=== PATIENT | male | born 1955 | race Caucasian/White ===

== ENCOUNTER 2017-03-30 11:27 | Observation (INO) | payer OTHER ==
--- NOTE | ~2017-03-30 | HP ---
History And Physical [place] [id number] [facility] [place]. [address] NAME: AYUSH FONSECA : 53 STATUS : DIS Yareli PAT#: [id number] AGE: 62 ADM/REG DATE : 03/30/17 MR#: [id number] REPORT SERV DATE: 03/30/17 DICTATED BY: KALLI FERNANDEZ DATE: 03/30/17 REPORT STATUS : Draft TRANSCRIBED BY: MODL DATE: 03/30/17 DATE OF ADMISSION: 03/30/2017 HISTORY OF PRESENT ILLNESS: This is a very pleasant 62-year-old male, who presented to [facility] because of abdominal discomfort mostly in the epigastric and mid abdominal area going for approximately four days. This is a patient of Dr. Fermin. The patient was also concerned about color of his urine, which was dark, and he went to [facility] where he was told that he may have a urinary infection because of the dark urine, and he was placed on antibiotic, ciprofloxacin. The patient noticed that he had fever of 102 and that whole day he was taking Tylenol. Fever was also a little bit lower 100.5 yesterday. The patient today did not have abnormal temperature. His temperature was 98.2. No significant nausea. Abdominal pain improved. No chest pain. No shortness of breath. No headache. No constipation or diarrhea. Also a 14-point review of systems done and negative except what is stated in the history of present illness. PAST MEDICAL HISTORY: Known for history of enlarged prostate. He had two or three biopsies and it was benign enlarged prostate, history of hypertension, hypercholesterolemia. No history of heart attacks. No history of strokes. PAST SURGICAL HISTORY: Includes umbilical hernia surgery and tonsillectomy as a child. ALLERGIES: HE IS ALLERGIC TO CEFEPIME, HAD TONGUE SWELLING FROM CEFEPIME, BUT CAN TAKE QUINOLONES LIKE LEVAQUIN AND CIPROFLOXACIN. SOCIAL HISTORY: He uses alcohol once or twice a week, approximately three or four glasses of wine, maybe even more. He does not have any history of alcohol withdrawal and does not have any history of shakiness. Denies any use of smoking. No recreational drug use. He lives with his who has Alzheimer's dementia. 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 FAMILY HISTORY: The patient is adopted, but his biological mother from a brain aneurysm. His biological father from old age. He does not really know what medical problems he had. HOME MEDICATIONS: Include aspirin 81 mg daily, ciprofloxacin 500 mg p.o. b.i.d., finasteride 5 mg p.o. daily, Lopid 600 mg b.i.d., HCTZ 25 mg daily, losartan 100 mg daily, lovastatin 20 mg daily, metoprolol 25 p.o. b.i.d., omeprazole 20 mg daily, oxybutynin 5 mg p.o. b.i.d., and Flomax 0.4 mg daily. PHYSICAL EXAMINATION: GENERAL: Well-nourished, well-developed male, not in acute distress. Resting quietly. VITAL SIGNS: Blood pressure 163/89, temperature 98.2, heart rate 98, respiratory rate 20, and oxygen saturation 94% on room air. HEENT: Head atraumatic, normocephalic. Conjunctivae clear. Pupils are equal and reactive to light and accommodation. Extraocular muscles are intact. NECK: Supple. Trachea is midline. No supraclavicular or cervical lymphadenopathy. LUNGS: Clear to auscultation bilaterally. Normal respiratory effort. History And Physical [address] [address] NAME: AYUSH FONSECA : 53 STATUS : DIS Yareli PAT#: [id number] AGE: 62 ADM/REG DATE : 03/30/17 MR#: [id number] REPORT SERV DATE: 03/30/17 DICTATED BY: KALLI FERNANDEZ DATE: 03/30/17 REPORT STATUS : Draft TRANSCRIBED BY: RADHA DATE: 03/30/17 CARDIOVASCULAR SYSTEM: Regular rate and rhythm. Point of maximal impulse not displaced. ABDOMEN: Soft. There is no significant tenderness to palpation in the epigastric area. There is no tenderness in all abdominal quadrants. No guarding. No rebound. Completely benign abdominal examination. EXTREMITIES: No clubbing, cyanosis, or edema. SKIN: Normal color and turgor. NEUROLOGIC: He is awake, alert, and oriented in time, place, and person. There is no tremor. LABORATORY RESULTS: Sodium 136, potassium 3.2, chloride 102, carbon dioxide 27, BUN 16, creatinine 0.7, blood sugar 148, magnesium 2.1. Total bilirubin 5.9, direct bilirubin 4.7, indirect 1.2, ALT 671, AST 177, lipase 508. Troponin less than 0.02. White count 5.8, hemoglobin 15.8, hematocrit 45.7, platelet count 178. PTT 31.9, PT 14.3, INR 1.1. Urinalysis showed moderate amount of bilirubin, large amount of blood, no evidence of urinary infection, only 3 white blood cells, and negative leukocyte esterase. Chest x-ray: Small amount of bibasilar atelectasis in minimal amount. CT of the abdomen without contrast done in the emergency room. No evidence of acute abnormality within the abdomen or pelvis. Borderline prominence of the common bile duct. Minimal bibasilar atelectasis. Slightly enlarged prostate. Diverticulosis with no evidence of diverticulitis. MRI is currently ordered on the abdomen but pending. ASSESSMENT AND PLAN: This is a very pleasant 62-year-old male who presented with abdominal pain in the epigastric area, dark urine, and fever episodes going on for two days, currently afebrile. This is a 62-year-old male with a past medical history of hypertension, presented with abdominal pain and fever at home which currently resolved, and was found to have: 1. Abnormally elevated bilirubin, mostly direct bilirubin, with elevated liver enzymes and mildly elevated lipase, which indicates possible biliary ductal obstruction, most likely biliary stone taking into consideration the prominence of the common biliary duct on the CT scan. We need to order an MRI to see if there is a bile duct stone as well as differential diagnosis can include alcoholic hepatitis or autoimmune hepatitis or also possible infectious hepatitis. Studies are ordered per remotely piloted vehicle controller. We will give patient IV fluid hydration, keep him on clear liquids with n.p.o. after midnight. MRCP of the abdomen is already ordered by emergency room physician, Dr. Peña. It is already keyed in the computer. Ultrasound of the liver also the gallbladder is ordered. The patient will be started on intravenous antibiotics, Levaquin and Flagyl since he had fever episodes. 2. Hypokalemia will be replaced. 3. Hypertension. We will continue his beta-yasmin. We will hold his losartan. If necessary, we will give him IV blood pressure medications. 4. We will hold his cholesterol medications because of elevated liver enzymes. We will History And Physical [address] [place]. [address] NAME: AYUSH FONSECA : 53 STATUS : DIS Yareli PAT#: [id number] AGE: 62 ADM/REG DATE : 03/30/17 MR#: [id number] REPORT SERV DATE: 03/30/17 DICTATED BY: KALLI FERNANDEZ DATE: 03/30/17 REPORT STATUS : Draft TRANSCRIBED BY: MODL DATE: 03/30/17 hold his aspirin because of possible procedure ERCP. My partner will see this patient starting tomorrow morning and remotely piloted vehicle controller, Sina, nurse practitioner of Dr. Otto, already saw this patient. The patient does not have any evidence of urinary tract infection. The patient was explained that his urine is dark because of elevated bilirubin which is filtered from blood to the urine. 5. For history of alcohol use, the patient said that he never had alcohol withdrawals. We will put him on thiamine, already put by Sina. We will check serum B12 and folic acid levels. MG/MODL Kalli Fernandez M.D. / [id number] CC: Daniel Fermin M.D.
--- NOTE | ~2017-03-30 | CN ---
Consultation Report [facility] [address] [place]. [address] NAME: AYUSH ADRIAN : 53 STATUS : DIS Yareli PAT#: [id number] AGE: 62 ADM/REG DATE : 03/30/17 MR#: [id number] REPORT SERV DATE: 03/30/17 DICTATED BY: MICHAEL SHARMA DATE: 03/30/17 REPORT STATUS : Draft TRANSCRIBED BY: MODL DATE: 03/30/17 GI CONSULTATION. DATE OF CONSULTATION: 03/30/2017 REASON FOR CONSULTATION: Evaluation and management of elevated LFTs, acute hepatic failure. HISTORY OF PRESENT ILLNESS: Mr. Adrian is a very pleasant, 62-year-old male patient, who presented to the [facility] Room today after being seen at an outpatient walk-in clinic on Thursday for abdominal pain. He was found to have elevated LFTs. The laboratory data from that visit on the 03/28/2017, he had an elevated ALT of 1129 as well as an elevated AST of 605 with a total bilirubin of 5.6 and a normal lipase at 115. He had presented to the walk-in clinic secondary to epigastric abdominal discomfort, some mild reflux, and in general not feeling well. He felt like he might have a urinary tract infection secondary to what he describes as very dark tea-colored urine. He was placed on a regimen of Cipro. After laboratory data revealed abnormalities in his liver enzymes, he was instructed by their office to come in for further evaluation. He was seen in the emergency room. He had a total bilirubin of 5.9, lipase of 508, ALT of 671, and AST of 177. CT scan done with contrast showed there were no suspicious focal abnormalities within the liver or spleen. No intrahepatic biliary ductal dilatation. No calcified stones identified in the gallbladder. No pericholecystic inflammation. The common duct was near the upper limits of normal in size and mildly prominent, measuring 7 mm. Pancreas was normal on this exam also. Secondary to his degree of elevation in liver enzymes, he was being admitted for further evaluation. The patient states he had a fever up to 102 degrees on Thursday, which he took Tylenol for. He states that before that it was 100.7 degrees. He has since that time not had fever. PAST MEDICAL HISTORY: Positive for elevated cholesterol, enlarged prostate, hypertension, GERD, diverticulosis. PAST SURGICAL HISTORY: He denies any surgical history to me. SOCIAL HISTORY: He is positive for alcohol. He states his last drink was roughly a week ago and states that he had drank half a bottle of wine, but does not do this often. He denies any tobacco or illicits. He lives at home with his who suffers from end-stage Alzheimer's and he takes care of her. FAMILY HISTORY: Noncontributory from a GI standpoint. ALLERGIES: LISTED TO CEFEPIME. HOME MEDICATIONS: Aspirin, Cipro, Proscar, Lopid, hydrochlorothiazide, Cozaar, Mevacor, Lopressor, Prilosec, Ditropan, and Flomax. Consultation Report [address] [address] NAME: AYUSH ADRIAN : 53 STATUS : DIS Yareli PAT#: [id number] AGE: 62 ADM/REG DATE : 03/30/17 MR#: [id number] REPORT SERV DATE: 03/30/17 DICTATED BY: MICHAEL SHARMA DATE: 03/30/17 REPORT STATUS : Draft TRANSCRIBED BY: RADHA DATE: 03/30/17 REVIEW OF SYSTEMS: A 10-point review of systems was obtained with pertinent positives being addressed in the history of present illness. PERTINENT LABORATORY DATA: Sodium 136, potassium 3.2, BUN is 16, creatinine 0.7. White count 5.8, hemoglobin 15.8, hematocrit 45.7, platelet count 178. INR of 1.1. Direct bilirubin 4.7, indirect 1.2, total bilirubin 5.9. Alkaline phosphatase 258. ALT 71, AST 177. Lipase 508. PHYSICAL EXAMINATION: VITAL SIGNS: Temperature 98.2, pulse of 98, respirations 20, blood pressure 163/89. GENERAL: Reveals an alert, male, resting in bed with no focal deficits. He is awake, alert, and oriented x3. He is cooperative. He is in no acute distress. He has notable jaundice as well as scleral icterus. He has no asterixis. NECK: No JVD. No palpable nodes. Supple. LUNGS: Clear anteriorly with normal respiratory effort exhibited. CARDIOVASCULAR: Regular rate and rhythm. ABDOMEN: Soft and obese. He has no tenderness to palpation on exam. No rebound or guarding. No organomegaly was appreciated. EXTREMITIES: No edema. He has normal distal pulses. SKIN: Warm, dry, and intact. Jaundiced. ASSESSMENT: 1. Elevated liver function tests/acute hepatitis. 2. Abdominal pain. 3. Gastroesophageal reflux disease. 4. History of intermittent alcohol. PLAN: 1. Trend his LFTs. 2. Check a hepatitis panel A, B, and C. 3. Follow up on MRI results. 4. IV fluids. 5. Protonix. 6. Check chronic liver labs. 7. +/- ERCP based on MRI. BRUCE/RADHA EUGENIO Ruiz / [id number] Consultation Report [address] [place]. [address] NAME: AYUSH ADRIAN : 53 STATUS : DIS Yareli PAT#: [id number] AGE: 62 ADM/REG DATE : 03/30/17 MR#: [id number] REPORT SERV DATE: 03/30/17 DICTATED BY: MICHAEL SHARMA DATE: 03/30/17 REPORT STATUS : Draft TRANSCRIBED BY: RADHA DATE: 03/30/17 CC: Megan Sterling M.D.
--- NOTE | ~2017-03-30 | DS ---
Discharge Summary [facility] [address] [facility] [place]. [address] NAME: AYUSH FONSECA : 53 STATUS : DIS Yareli PAT#: [id number] AGE: 62 ADM/REG DATE : 03/30/17 MR#: [id number] REPORT SERV DATE: 04/01/17 DICTATED BY: REMIGIO LEMON DATE: 03/31/17 REPORT STATUS : Draft TRANSCRIBED BY: MODL DATE: 03/31/17 ADMISSION DATE: 03/30/2017 DISCHARGE DATE: 03/31/2017 REASON FOR ADMISSION: This was a 62-year-old male, who had come into the emergency room after being seen at outpatient walk-in clinic on Thursday for abdominal pain, and was found to have elevated LFTs. He felt like he had UTI as he was having dark tea-colored urine and was placed on antibiotics Cipro. After his lab work came back, they instructed him to come into the hospital for further evaluation. DISCHARGE DIAGNOSES: 1. Acute hepatitis, unclear etiology with transaminitis. 2. Abdominal pain. 3. Gastroesophageal reflux disease. 4. Alcohol use. HOSPITAL COURSE: Acute hepatitis with transaminitis. The patient on admission had a consult placed to GI. His total bilirubin was 5.9 on admit, trended down to 2.9 today. His alkaline phosphatase was 258 on admit, 258 today. His ALT was 671, 543 today; AST 177, 123 today; and lipase was 508 on admit, 380 today. The patient's abdominal pain which was present on admission has since resolved. On admission, he had abdominal imaging with an MRI of the abdomen which would show no pancreatic mass. No evidence of any intraductal obstruction seen. Several 2 to 3 mm benign cyst on kidneys bilaterally, but no acute liver, gallbladder, or pancreas findings. He also had a gallbladder ultrasound which showed normal appearance gallbladder and his abdominal pain resolved. A hepatitis panel was drawn, hepatitis B surface antigens nonreactive, hepatitis A IgM nonreactive, his hepatitis core IgM is still pending, and his hepatitis C antibody also still pending. We will have him follow up with GI, Dr. Schroeder, next week for followup labs. The patient tolerating food, urine improving, bilirubin improving, so he is discharging home. DISCHARGE CONDITION: Stable. DISCHARGE MEDICATIONS: 1. Metoprolol 25 mg p.o. b.i.d. 2. We will be holding his lovastatin until cleared by GI after his followup. 3. HCTZ 25 mg p.o. daily. 4. Ditropan 5 mg p.o. b.i.d. 5. Flomax 0.4 mg p.o. daily. 6. Lopid 600 mg p.o. b.i.d. 7. Prilosec 20 mg p.o. daily. 8. Proscar 5 mg p.o. daily. 9. Aspirin 81 mg p.o. daily. 10.Losartan 100 mg p.o. daily. Also of note, his INR was 1.1. DISCHARGE PLAN: The patient is discharged home. Follow up with GI next week, and primary Discharge Summary [address] [place]. [address] NAME: AYUSH FONSECA : 53 STATUS : DIS Yareli PAT#: [id number] AGE: 62 ADM/REG DATE : 03/30/17 MR#: [id number] REPORT SERV DATE: 04/01/17 DICTATED BY: REMIGIO LEMON DATE: 03/31/17 REPORT STATUS : Draft TRANSCRIBED BY: RADHA DATE: 03/31/17 care Daniel Fermin in 1 to 2 weeks. DICTATED BY: Remigio Lemon APN TDR/RADHA Remigio Lemon APN / [id number] CC: Suhas Cardenas M.D.
[2017-03-30 10:49] LABS: BASOPHILS 0.2 %; BASOPHILS ABSOLUTE 0.01 10/3/uL (0.0-0.16); EOSINOPHILS 4.5 %; EOSINOPHILS ABSOLUTE 0.26 10/3/uL (0.0-0.53); ER CBC TAT 0 Hrs 07 Mins; HEMATOCRIT 45.7 % (40.0-51.0); HEMOGLOBIN 15.8 g/dL (13.6-17.8); IMMATURE GRANULOCYTES 0.3 %; IMMATURE GRANULOCYTES ABSOLUTE 0.02 10/3/uL (0.0-0.11); LYMPHOCYTES 11.3 %; LYMPHOCYTES ABSOLUTE 0.66 10/3/uL (0.67-4.30); MANUAL DIFF NO %; MEAN CORPUS HGB CONC 34.6 g/dL (32.0-36.0); MEAN CORPUSCULAR HEMOGLOB 29.6 pg (26.0-34.0); MEAN CORPUSCULAR VOLUME 85.7 fL (80-100); MEAN PLATELET VOLUME 10.6 fL (9.2-13.0); MONOCYTES 11.5 %; MONOCYTES ABSOLUTE 0.67 10/3/uL (0.21-1.20); NEUTROPHILS 72.2 %; NEUTROPHILS ABSOLUTE 4.22 10/3/uL (2.02-8.40); PLATELET COUNT 178 10/3/uL (150-400); RBC DISTRIBUTION WIDTH 14.6 % (12.0-16.0); RED CELL COUNT 5.33 10/6/uL (4.7-6.1); WHITE BLOOD CELLS 5.8 10/3/uL (4.5-10.5)
[2017-03-30 10:57] LABS: INTERNATIONAL NORMAL RATI 1.1 UNITS (-); PARTIAL THROMBO TIME 31.9 SEC (22.5-37.2); PROTIME (NOT ORD) 14.3 SEC (12.0-14.5)
[2017-03-30 11:08] LABS: ALBUMIN 3.2 G/DL (3.5-5.0); ALKALINE PHOSPHATASE 258 U/L (45-117); BUN (BLOOD UREA NITROGEN) 16 MG/DL (6-23); CALCIUM, SERUM 8.8 MG/DL (8.5-10.4); CHEST PAIN PROFILE TAT 0 Hrs 26 Mins; CHLORIDE, SERUM 102 MMOL/L (96-112); CO2 (CARBON DIOXIDE) 27 MMOL/L (24-34); DIRECT BILIRUBIN 4.7 MG/DL (0.0-0.4); GFR AFRICAN AMERICAN 116 ML/MIN (>=60); GFR NON AFRICAN AMERICAN 100 ML/MIN (>=60); GLUCOSE, SERUM 148 MG/DL (60-99); INDIRECT BILIRUBIN(NOT ORDER) 1.2 MG/DL (0.1-0.9); POTASSIUM, SERUM 3.2 MMOL/L (3.5-5.3); SGOT(AST) 177 U/L (5-40); SGPT(ALT) 671 U/L (5-65); SODIUM, SERUM 136 MMOL/L (135-148); TOTAL BILIRUBIN 5.9 MG/DL (0-1.2); TROPONIN I <0.02 NG/ML (<0.05)
[~2017-03-30 11:27] MED LIST: CIP5 PO; COZAAR100 MG PO; DITRO5 PO; FLOMAX4 PO; HALF81 PO; HYDROCHLOROT25 MG PO; LOP25 PO; LOPID6 PO; MEVACOR PO; PRILO PO; PROSCAR5 PO
[2017-03-30 12:24] LABS: ASCORBIC ACID (UR NOT ORDER) NEG (NEG); BILIRUBIN, URINE MODERATE (NEG); ER URINALYSIS TAT 0 Hrs 11 Mins; KETONE, URINE NEGATIVE (NEG); LEUKOCYTE ESTERASE(NOT OR NEG (NEG); NITRITE (URINE) NEG (NEG); WBC (NOT ORDERED) (RFLEX) 3 (0-5)
[2017-03-30 19:44] LABS: GAMMA GT 812 U/L (5-85)
[2017-03-30 20:23] LABS: % IRON SAT 14 % (20-50); FERRITIN 594 NG/ML (26-388); IRON BINDING CAPACITY 285 MCG/DL (250-450); IRON, SERUM 39 MCG/DL (35-150)
[2017-03-31 03:15] LABS: BASOPHILS 0.7 %; BASOPHILS ABSOLUTE 0.04 10/3/uL (0.0-0.16); EOSINOPHILS 6.7 %; HEMATOCRIT 45.4 % (40.0-51.0); HEMOGLOBIN 15.6 g/dL (13.6-17.8); IMMATURE GRANULOCYTES 0.2 %; IMMATURE GRANULOCYTES ABSOLUTE 0.01 10/3/uL (0.0-0.11); LYMPHOCYTES 18.9 %; LYMPHOCYTES ABSOLUTE 1.13 10/3/uL (0.67-4.30); MANUAL DIFF NO %; MEAN CORPUS HGB CONC 34.4 g/dL (32.0-36.0); MEAN CORPUSCULAR HEMOGLOB 29.4 pg (26.0-34.0); MEAN CORPUSCULAR VOLUME 85.7 fL (80-100); MEAN PLATELET VOLUME 10.8 fL (9.2-13.0); MONOCYTES 10.4 %; MONOCYTES ABSOLUTE 0.62 10/3/uL (0.21-1.20); NEUTROPHILS 63.1 %; NEUTROPHILS ABSOLUTE 3.78 10/3/uL (2.02-8.40); PLATELET COUNT 193 10/3/uL (150-400); RBC DISTRIBUTION WIDTH 14.8 % (12.0-16.0)
[2017-03-31 03:32] LABS: A/G RATIO 0.7 (0.7-1.9); ALKALINE PHOSPHATASE 258 U/L (45-117); BUN (BLOOD UREA NITROGEN) 12 MG/DL (6-23); CALCIUM, SERUM 9.3 MG/DL (8.5-10.4); CHLORIDE, SERUM 104 MMOL/L (96-112); CO2 (CARBON DIOXIDE) 27 MMOL/L (24-34); CREATININE 0.71 MG/DL (0.70-1.30); GFR AFRICAN AMERICAN 116 ML/MIN (>=60); GFR NON AFRICAN AMERICAN 100 ML/MIN (>=60); GLOBULIN 4.1 G/DL (2.5-4.1); POTASSIUM, SERUM 3.7 MMOL/L (3.5-5.3); SGOT(AST) 123 U/L (5-40); SGPT(ALT) 543 U/L (5-65); SODIUM, SERUM 139 MMOL/L (135-148); TOTAL PROTEIN 7.1 G/DL (6.0-8.5)
[2017-03-31 03:33] LABS: GLUCOSE, SERUM 97 MG/DL (60-99); TOTAL BILIRUBIN 2.9 MG/DL (0-1.2)
[2017-03-31 10:11] LABS: HEPATITIS B SURFACE ANTIGEN NON-REACTIVE (NON-REACT)
[2017-03-31 10:11] LABS: RNP ANTIBODIES (NOT ORD) NEGATIVE (NEGATIVE); SM ANTIBODIES NEGATIVE (NEGATIVE)
[2017-03-31 10:41] LABS: HEP A ANTIBODY IGM NON-REACTIVE (NON-REACT)
[2017-04-01 04:12] LABS: ALPHA-1-ANTITRYPSIN 218 mg/dL (100-200)
[2017-04-01 07:49] LABS: HEPATITIS B CORE AB IGM NON-REACTIVE (NON-REAC); HEPATITIS C ANTIBODY NON-REACTIVE (NON-REACT)
[2017-04-01 14:17] LABS: MITOCHONDRIAL ANTIBODY Negative (NEG)
[2017-04-02 18:37] LABS: CERULOPLASMIN 39 mg/dL (7-220)
[2017-04-03 14:07] LABS: SMOOTH MUSCLE ANTIBODIES Negative (NEG)
== END 2017-03-31 16:50 | disposition home or self-care (01) ==
LOC: ER 11:27 → CDU1 17:01 → CDU2 17:32
PROVIDERS: Emergency Medicine; Hospitalist; Nurse Practitioner Family
DX: B17.9 Acute viral hepatitis, unspecified (principal); K21.9 Gastro-esophageal reflux disease without esophagitis; I10 Essential (primary) hypertension; E87.6 Hypokalemia; E78.00 Pure hypercholesterolemia, unspecified; Z98.890 Other specified postprocedural states; Z88.8 Allergy status to other drugs, medicaments and biological substances; Z79.82 Long term (current) use of aspirin; Z79.899 Other long term (current) drug therapy
CPT/HCPCS: 71010; 74177; 74181; 76705; 80048; 80053; 80074; 80076; 81001; 82103; 82140; 82150; 82390; 82607; 82728; 82746; 82977; 83540; 83550; 83690; 83735; 84484; 85025; 85610; 85730; 86235; 86235-59; 86255; 87040; 93005; 96374; 96375; 96376; 99285; A9270-GY; C9113; G0378; J0360; J1956; J2405; J3411; Q9967